=== PATIENT | female | born 1990 | race Caucasian/White ===

== ENCOUNTER 2017-12-12 14:53 | Emergency (ER) | payer SELFPAY ==
[~2017-12-12] VITALS: Ht 160 cm; Wt 63.5 kg
[2017-12-12 15:42] VITALS: BP 146/67
[2017-12-12] MEDS ORDERED: OXYC-323 PO (15:56)
--- NOTE | 2017-12-12 15:57 | PHYS DOC ---
Past Medical History Past Medical History: No Pertinent History Past Surgical History: No Surgical History Alcohol Use: None Drug Use: None Adult General Chief Complaint Chief Complaint: DENTAL PROBLEM HPI HPI Patient is a 26 year old female who presents with a right lower back with some tooth pulled last Monday. Patient does not have a follow-up appointment until Monday next week. Patient now has a lot of pain with eating and has some brown discharge in the gum is inflamed. Denies fever or nausea or vomiting. Review of Systems Review of Systems Constitutional: Denies fever or chills [] Eyes: Denies change in visual acuity, redness, or eye pain [] HENT: Denies nasal congestion or sore throat. Dental pain. [] Respiratory: Denies cough or shortness of breath [] Cardiovascular: No additional information not addressed in HPI [] GI: Denies abdominal pain, nausea, vomiting, bloody stools or diarrhea [] : Denies dysuria or hematuria [] Musculoskeletal: Denies back pain or joint pain [] Integument: Denies rash or skin lesions [] Neurologic: Denies headache, focal weakness or sensory changes [] Endocrine: Denies polyuria or polydipsia [] All other systems were reviewed and found to be within normal limits, except as documented in this note. Allergies Allergies Allergies Coded Allergies Type Severity Reaction Last Updated Verified No Known Drug Allergies 02/20/13 No Physical Exam Physical Exam Constitutional: Well developed, well nourished, no acute distress, non-toxic appearance. [] HENT: Normocephalic, atraumatic, bilateral external ears normal, oropharynx moist, no oral exudates, nose normal. Right lower wisdom tooth extraction site is red, swollen and has some brown discharge. [] Eyes: PERRLA, EOMI, conjunctiva normal, no discharge. [] Neck: Normal range of motion, no tenderness, supple, no stridor. [] Cardiovascular:Heart rate regular rhythm, no murmur [] Lungs & Thorax: Bilateral breath sounds clear to auscultation [] Abdomen: Bowel sounds normal, soft, no tenderness, no masses, no pulsatile masses. [] Skin: Warm, dry, no erythema, no rash. [] Back: No tenderness, no CVA tenderness. [] Extremities: No tenderness, no cyanosis, no clubbing, ROM intact, no edema. [] Neurologic: Alert and oriented X 3, normal motor function, normal sensory function, no focal deficits noted. [] Psychologic: Affect normal, judgement normal, mood normal. [] Current Patient Data Vital Signs Vital Signs Date Time Temp Pulse Resp B/P (MAP) Pulse Ox O2 Delivery O2 Flow Rate FiO2 12/12/17 15:42 98.5 67 18 146/67 (93) 98 Room Air 98.5 EKG EKG [] Radiology/Procedures Radiology/Procedures [] Course & Med Decision Making Course & Med Decision Making Patient is a 26 year old female who presents with a right lower back with some tooth pulled last Monday. Patient does not have a follow-up appointment until Monday next week. Patient now has a lot of pain with eating and has some brown discharge in the gum is inflamed. Denies fever or nausea or vomiting. Chin is currently using peroxide mouthwash, taking ibuprofen, and amoxicillin. Patient states that the hydrocodone was not helping her pain. Patient rates her pain a 5 out of 10. Upon examination Patients tooth extraction area is red, swollen and has slight brown discharge. I told jackie to keep using all of her medications she has been prescribed but that I would switch her medication to Percocet for pain to get her through to see her dentist. Patient is to call her dentist tomorrow and follow up as soon as possible. Jackie is agreeable to this discharge plan. [] Dragon Disclaimer Dragon Disclaimer This electronic medical record was generated, in whole or in part, using a voice recognition dictation system. Departure Departure Impression: Primary Impression: Pain, dental Disposition: HOME, SELF-CARE Condition: STABLE Referrals: NO PCP (PCP) Patient Instructions: Dental Dry Socket, Dental Pain Additional Instructions: Keep taking medications as prescribed. Do not chew on that side of mouth and rinse mouth after every meal. Scripts Oxycodone/Apap 5-325 (PERCOCET 5-325 MG TABLET) 1 Each Tablet 1 TAB PO PRN Q6HRS PRN for PAIN, #8 TAB 0 Refills Prov: FABRIZIO BADILLO APRN 12/12/17 FABRIZIO BADILLO APRN Dec 12, 2017 15:57
== END 2017-12-12 16:17 | disposition home or self-care (01) ==
LOC: ER 14:53
DX: K08.89 Other specified disorders of teeth and supporting structures (principal)
CPT/HCPCS: 99283

== ENCOUNTER 2018-03-24 14:05 | Emergency (ER) | payer SELFPAY ==
[~2018-03-24] VITALS: Ht 157.5 cm; Wt 69.4 kg
[~2018-03-24 14:05] MED LIST: OXYC1TAB15 PO
[2018-03-24] MEDS ORDERED: IV NORMAL SALINE 1000ML BAG 1,000 ML IV ONE ×2 (14:30→15:45)
[2018-03-24] MEDS ORDERED: ONDANSETRON PF 4 MG/2 ML VIAL. IV ONE (14:30)
[2018-03-24 14:31] LABS: BILIRUBIN,URINE SMALL (NEG); CLARITY,URINE CLOUDY; COLOR,URINE AMBER; NITRITE,URINE NEGATIVE (NEG); PROTEIN,URINE 30 mg/dL (NEG-TRACE)
[2018-03-24 14:33] LABS: U PREG PATIENT NEGATIVE (NEG)
[2018-03-24 14:35] LABS: BACTERIA,URINE MANY /HPF (0-FEW); RBC,URINE OCC /HPF (0-2); SQUAMOUS EPITHELIAL CELL,UR MOD /LPF; WBC,URINE 20-40 /HPF (0-4)
--- NOTE | 2018-03-24 14:42 | PHYS DOC ---
Past Medical History Past Medical History: No Pertinent History Past Surgical History: No Surgical History Alcohol Use: None Drug Use: None Adult General Chief Complaint Chief Complaint: DIZZY/LIGHT HEADED HPI HPI Patient is a 27 year old female who presents with flu-like symptoms. Patient has been ill over the last day. She reports a very sudden onset of muscle and body aches yesterday along with some cough which she describes to be dry. She has had a sore throat and some pain with swallowing. She has had nausea and vomiting and has been unable to keep down any food or fluids over the course of today. She has not had a documented fever but has had chills. Patient denies any chronic health conditions. She denies urinary symptoms, abdominal pain or pelvic pain. Her last menstrual cycle was 2 weeks earlier. Review of Systems Review of Systems Constitutional: + chills Eyes: Denies change in visual acuity HENT: + nasal congestion and sore throat Respiratory: Denies shortness of breath Cardiovascular: No additional information not addressed in HPI GI: as documented above : Denies dysuria Musculoskeletal: Denies back pain Integument: Denies rash or skin lesions All other systems were reviewed and found to be within normal limits, except as documented in this note. Current Medications Current Medications Current Medications Medications (Trade) Dose Ordered Sig/Consuelo Start Time Stop Time Status Last Admin Dose Admin Ceftriaxone Sodium (Rocephin) 1 gm 1X ONCE 03/24/18 15:15 03/24/18 15:16 DC 03/24/18 15:18 1 GM Ondansetron HCl (Zofran) 4 mg 1X ONCE 03/24/18 14:30 03/24/18 14:31 DC 03/24/18 14:42 4 MG Sodium Chloride 1,000 ml @ 1,000 mls/hr 1X ONCE 03/24/18 15:45 03/24/18 16:44 DC 03/24/18 15:40 1,000 MLS/HR Allergies Allergies Allergies Coded Allergies Type Severity Reaction Last Updated Verified No Known Drug Allergies 02/20/13 No Physical Exam Physical Exam Constitutional: Well developed, well nourished, no acute distress, ill- appearing but non-toxic HENT: Normocephalic, atraumatic, bilateral external ears normal, oropharynx moist, posterior oral pharynx is injected but free from exudates Eyes: PERRLA, EOMI, conjunctiva normal Neck: Normal range of motion, supple Cardiovascular: tachy, regular rhythm, no murmur Lungs & Thorax: Bilateral breath sounds clear to auscultation Abdomen: Bowel sounds normal, soft, no tenderness Skin: Warm, dry, no erythema, no rash Extremities: No edema Neurologic: Alert and oriented X 3 Psychologic: Affect normal Current Patient Data Vital Signs Vital Signs Date Time Temp Pulse Resp B/P (MAP) Pulse Ox O2 Delivery O2 Flow Rate FiO2 03/24/18 16:42 98 14 98 03/24/18 14:08 99.5 126/82 (97) Room Air 99.5 Lab Values Laboratory Tests Test 03/24/18 14:10 03/24/18 14:35 Urine Collection Type Unknown Urine Color Richelle Urine Clarity Cloudy Urine pH 6.0 Urine Specific [place] >=1.030 Urine Protein 30 mg/dL (NEG-TRACE) Urine Glucose (UA) Negative mg/dL (NEG) Urine Ketones (Stick) >=80 mg/dL (NEG) Urine Blood Small (NEG) Urine Nitrite Negative (NEG) Urine Bilirubin Small (NEG) Urine Urobilinogen Dipstick 1.0 mg/dL (0.2 mg/dL) Urine Leukocyte Esterase Large (NEG) Urine RBC Occ /HPF (0-2) Urine WBC 20-40 /HPF (0-4) Urine Squamous Epithelial Cells Mod /LPF Urine Bacteria Many /HPF (0-FEW) Urine Mucus Mod /LPF Urine Test Negative (NEG) Sodium Level 138 mmol/L (136-145) Potassium Level 3.6 mmol/L (3.5-5.1) Chloride Level 101 mmol/L (98-107) Carbon Dioxide Level 24 mmol/L (21-32) Anion Gap 13 (6-14) Blood Urea Nitrogen 12 mg/dL (7-20) Creatinine 0.7 mg/dL (0.6-1.0) Estimated GFR (Cockcroft-Gault) 101.1 Glucose Level 86 mg/dL (70-99) Calcium Level 9.2 mg/dL (8.5-10.1) Magnesium Level 2.1 mg/dL (1.8-2.4) Laboratory Tests 03/24/18 14:35 EKG EKG [] Radiology/Procedures Radiology/Procedures [] Course & Med Decision Making Course & Med Decision Making Pertinent Labs and Imaging studies reviewed. (See chart for details) 14:30: Patient is seen and examined. IV fluids and some labs ordered. 17:00: Patient feeling improved. She received 2 L of normal saline. She is tolerating clear liquids. Her pain is improved. Her vital signs are improved. Plan is for discharge home. She was given a gram of Rocephin in the emergency department for urinary tract infection. She was noted to have strep throat as well. The patient is discharged home with prescription for Augmentin to cover both conditions. She is also placed on Zofran as needed for nausea and ibuprofen. Patient will come back to the ER for any new or worsening symptoms. Otherwise, follow up with her primary care doctor. Dragon Disclaimer Dragjannet Disclaimer This electronic medical record was generated, in whole or in part, using a voice recognition dictation system. Departure Departure Disposition: HOME, SELF-CARE Condition: GOOD Referrals: NO PCP (PCP) Scripts Ondansetron Hcl (ZOFRAN) 4 Mg Tablet 4 MG PO PRN TID PRN for NAUSEA, #10 nausea/vomiting Prov: SUYAPA RAMÍREZ DO 03/24/18 Hydrocodone/Apap 5-325 (NORCO 5-325 TABLET) 1 Each Tablet 1-2 EACH PO PRN Q6HRS PRN for SEVERE PAIN, #15 as needed for pain Prov: SUYAPA RAMÍREZ DO 03/24/18 Amoxicillin/Potassium Clav (AUGMENTIN 875-125 TABLET) 1 Each Tablet 1 TAB PO BID, #14 TAB Prov: SUYAPA RAMÍREZ DO 03/24/18 SUYAPA RAMÍREZ DO Mar 24, 2018 14:42
[2018-03-24 14:56] LABS: CALCIUM 9.2 mg/dL (8.5-10.1); CREATININE 0.7 mg/dL (0.6-1.0); GFR 101.1; MAGNESIUM 2.1 mg/dL (1.8-2.4); POTASSIUM 3.6 mmol/L (3.5-5.1)
[2018-03-24] MEDS ORDERED: cefTRIAXone IV Push 1 GM VIAL. IVP ONE (15:15)
[2018-03-24] MEDS ORDERED: HYDR-3164 PO (16:09)
[2018-03-24] MEDS ORDERED: ONDA4TAB7 PO (16:09)
[2018-03-24] MEDS ORDERED: AMOX1TAB61 PO (16:09)
[2018-03-24 16:42] VITALS: BP 128/76
== END 2018-03-24 17:08 | disposition home or self-care (01) ==
LOC: ER 14:05
DX: J02.9 Acute pharyngitis, unspecified (principal); R11.2 Nausea with vomiting, unspecified; N39.0 Urinary tract infection, site not specified
CPT/HCPCS: 36415; 80048; 81001; 81025; 83735; 87880; 96361; 96374; 96375; 99283; J0696; J2405; J7030

== ENCOUNTER 2021-05-09 15:09 | Emergency (ER) | payer SELFPAY ==
[~2021-05-09] VITALS: Ht 157.5 cm; Wt 73.0 kg
[~2021-05-09 15:09] MED LIST changes: +AMOX1TAB61 PO; +HYDR-3164 PO; +ONDA4TAB7 PO
[2021-05-09 15:38] VITALS: BP 136/80
--- NOTE | 2021-05-09 16:13 | PHYS DOC ---
Past Medical History Past Medical History: No Pertinent History (SHAUN SAGASTUME HELP DESK SUPPORT) Past Surgical History: No Surgical History (SHAUN SAGASTUME HELP DESK SUPPORT) Smoking Status: Never Smoker Alcohol Use: None Drug Use: None (SHAUN SAGASTUME HEL[employer] DESK SUPPORT) General Adult EDM: Chief Complaint: VAGINAL PROBLEM HPI: HPI: Patient is a 30 year old female who presents the ED today complaining of vaginal bleeding. Patient states she had a cycle on April 16, 2021, this is her normal cycle, it lasted 4 days. She states on May 01, 2021 she started spotting and since yesterday she has been passing some clots. Patient states she felt dizzy today and decided to come to be evaluated. Reports abdominal cramping. Denies any back pain, nausea, vomiting. Denies any chance she is , she states she has done tests at home and they were negative. Denies soaking more than 1 feminine pad an hour (SHAUN SAGASTUME HELP DESK SUPPORT) Review of Systems: Review of Systems: Constitutional: Denies fever or chills. [] GI: Reports vaginal bleeding, denies nausea, vomiting, bloody stools or diarrhea. [] : Denies dysuria. [] Musculoskeletal: Denies back pain or joint pain. [] Integument: Denies rash. [] Neurologic: Denies headache, focal weakness or sensory changes. [] Psychiatric: Denies depression or anxiety. [] (SHAUN SAGASTUME HELP DESK SUPPORT) Heart Score: C/O Chest Pain: N/A Risk Factors: Risk Factors: DM, Current or recent (<one month) smoker, HTN, HLP, family history of CAD, obesity. Risk Scores: Score 0 - 3: 2.5% MACE over next 6 weeks - Discharge Home Score 4 - 6: 20.3% MACE over next 6 weeks - Admit for Clinical Observation Score 7 - 10: 72.7% MACE over next 6 weeks - Early Invasive Strategies (SHAUN SAGASTUME HELP DESK SUPPORT) Allergies: Allergies: Allergies Coded Allergies Type Severity Reaction Last Updated Verified No Known Drug Allergies 02/20/13 No (SHAUN SAGASTUME HEL[employer] DESK SUPPORT) Physical Exam: PE: Constitutional: Well developed, well nourished, no acute distress, non-toxic appearance. [] HENT: Normocephalic, atraumatic, bilateral external ears normal, oropharynx moist, no oral exudates, nose normal. [] Eyes: PERRLA, EOMI, conjunctiva normal, no discharge. [] Neck: Normal range of motion, no tenderness, supple, no stridor. [] Cardiovascular:Heart rate regular rhythm, no murmur [] Lungs & Thorax: Bilateral breath sounds clear to auscultation [] Abdomen: Bowel sounds normal, soft, no tenderness, no masses, no pulsatile masses. [] Skin: Warm, dry, no erythema, no rash. [] Back: No tenderness, no CVA tenderness. [] Extremities: No tenderness, no cyanosis, no clubbing, ROM intact, no edema. [] Neurologic: Alert and oriented X 3, normal motor function, normal sensory function, no focal deficits noted. [] Psychologic: Affect normal, judgement normal, mood normal. [] (SHAUN SAGASTUME HELP DESK SUPPORT) Current Patient Data: Labs: Laboratory Tests Test 05/09/21 16:07 POC Urine HCG, Qualitative Hcg negative (Negative) Vital Signs: Vital Signs Date Time Temp Pulse Resp B/P (MAP) Pulse Ox O2 Delivery O2 Flow Rate FiO2 05/09/21 15:38 97.9 70 16 136/80 (98) 99 Room Air 97.9 (SHAUN SAGASTUME HELP DESK SUPPORT) EKG: EKG: [] (SHAUN SAGASTUME HELP DESK SUPPORT) Radiology/Procedures: Radiology/Procedures: []PROCEDURE: PELVIS COMPLETE EXAM: ULTRASOUND PELVIS INDICATION: Reason: vag bleeding with large clots / Spl. Instructions: / History: . Last menstrual period was 05/01/2021. COMPARISON: None available. TECHNIQUE: Transabdominal sonography was performed. FINDINGS: Uterus measures 7.7 x 5.4 x 3.6 cm. Endometrium is 6 mm in thickness. Right ovary measures 3.2 x 2.4 x 1.8 cm. Left ovary measures 2.1 x 2.5 x 1.3 cm. Vascular flow identified the ovaries bilaterally. No free fluid identified and pelvis. IMPRESSION: Normal sonographic appearance of the uterus and ovaries. No ovarian torsion. Electronically signed by: Jaden Choudhury MD (05/09/2021 5:58 PM) [facility] DICTATED and SIGNED BY: JADEN CHOUDHURY MD DATE: 05/09/21 [id number] (SHAUN SAGASTUME APRN) Course & Med Decision Making: Course & Med Decision Making Pertinent Labs and Imaging studies reviewed. (See chart for details) This a 30-year-old female patient presented to the ED today complaining of vaginal bleeding, patient states she had her normal cycle in April 16, 2021, cycle lasted 4 days, she states May 01, 2021 she started spotting and now she is bleeding, she started passing clots yesterday. [place] dizzy today. Negative urine hCG, UA negative for infection. CBC with is completely normal, pelvic ultrasound is negative for any acute findings. Instructed patient to follow-up with her own [facility] DELIVERER. Provided return precautions. (SHAUN SAGASTUME APRN) Course & Med Decision Making Patients Care and treatment plan provided by ER Nurse Practitioner. I was available for consult. Patient's chart reviewed. (SUNITA ROYAL DO) Dragon Disclaimer: Dragon Disclaimer: This electronic medical record was generated, in whole or in part, using a voice recognition dictation system. (SHAUN SAGASTUME APRN) Departure Departure Impression: Primary Impression: Dysfunctional uterine bleeding Disposition: HOME / SELF CARE / HOMELESS Condition: STABLE Referrals: NO PCP (PCP) YON KIRBY MD follow up with your OBGYN as soon as you can Patient Instructions: Uterine Bleeding, Dysfunctional Additional Instructions: You were evaluated in the emergency room for vaginal bleeding. Your hemoglobin and hematocrit are normal. Your test is negative, your pelvic ultrasound is negative for any acute findings. Kindly follow-up with your MILK DELIVERER or the provided MILK DELIVERER as soon as you can. SHAUN SAGASTUME APRN May 09, 2021 16:13 SUNITA ROYAL DO May 09, 2021 18:47
[2021-05-09 16:45] LABS: BASO # 0.1 x10^3/uL (0.0-0.2); BASO % 1 % (0-3); EOS % 1 % (0-3); HEMATOCRIT 40.9 % (36.0-47.0); HEMOGLOBIN 13.9 g/dL (12.0-15.5); LYMPH # 3.6 x10^3/uL (1.0-4.8); LYMPH % 39 % (24-48); MEAN CORPUSCULAR HEMOGLOBIN 30 pg (25-35); MEAN CORPUSCULAR HGB CONC 34 g/dL (31-37); MEAN CORPUSCULAR VOLUME 89 fL (79-100); MONO # 0.7 x10^3/uL (0.0-1.1); MONO % 7 % (0-9); NEUT # 4.8 x10^3/uL (1.8-7.7); NEUT % 52 % (31-73); PLATELET COUNT 317 x10^3/uL (140-400); RED BLOOD COUNT 4.59 x10^6/uL (3.50-5.40); RED CELL DISTRIBUTION WIDTH 13.1 % (11.5-14.5); WHITE BLOOD COUNT 9.2 x10^3/uL (4.0-11.0)
[2021-05-09 17:18] LABS: CLARITY,URINE CLEAR; COLOR,URINE YELLOW
[2021-05-09 17:19] LABS: BACTERIA,URINE 0 /HPF (0-FEW); BILIRUBIN,URINE NEGATIVE (NEG); NITRITE,URINE NEGATIVE (NEG); PROTEIN,URINE NEGATIVE (NEG-TRACE); UROBILINOGEN,URINE 0.2 mg/dL (0.2 mg/dL); WBC,URINE 0 /HPF (0-4)
--- NOTE | 2021-05-09 18:01 | RAD ---
EXAM: ULTRASOUND PELVIS INDICATION: Reason: vag bleeding with large clots / Spl. Instructions: / History: . Last menstrual period was 05/01/2021. COMPARISON: None available. TECHNIQUE: Transabdominal sonography was performed. FINDINGS: Uterus measures 7.7 x 5.4 x 3.6 cm. Endometrium is 6 mm in thickness. Right ovary measures 3.2 x 2.4 x 1.8 cm. Left ovary measures 2.1 x 2.5 x 1.3 cm. Vascular flow identified the ovaries bilaterally. No free fluid identified and pelvis. IMPRESSION: Normal sonographic appearance of the uterus and ovaries. No ovarian torsion. Electronically signed by: Jaden Oh MD (05/09/2021 5:58 PM) [facility]
== END 2021-05-09 18:08 | disposition home or self-care (01) ==
LOC: ER 15:09
DX: N93.8 Other specified abnormal uterine and vaginal bleeding (principal)
CPT/HCPCS: 36415; 76856; 81001; 81025; 85025; 99284-25